=== PATIENT | female | born 1990 | race Caucasian/White ===

== ENCOUNTER 2020-11-16 11:14 | Emergency (ER) | payer OTHER ==
[~2020-11-16] VITALS: Ht 167.6 cm; Wt 81.3 kg
[2020-11-16 11:22] VITALS: BP 127/85
--- NOTE | 2020-11-16 11:52 | NUR ---
PT TO ROOM FROM TRIAGE. PT STATED THAT SHE IS 14 WEEKS . PT HAD SOME VB LAST WEEK AND US SHOWED SUB CHORIONIC HEMATOMA. LAST NIGHT, PT WAS EXPERIENCING SEVERE CRAMPING AND VAGINAL BLEEDING, SOAKING THROUGH 2 PADS WITH SOME CLOTS. PT'S OB TOLD HER TO COME TO THE ER FOR ANY WORSENING BLEEDING OR CRAMPING. PT STATED THAT HER BLEEDING HAS SLOWED DOWN AND CRAMPING IS LESS THAN LAST NIGHT.
[2020-11-16 11:58] LABS: BASOPHILS % (AUTO) 1 % (0-1); EOSINOPHILS % (AUTO) 1 % (1-7); LYMPHOCYTES % (AUTO) 22 % (22-44); MEAN CORPUSCULAR HEMOGLOBIN 33.2 pg (27.0-34.8); MEAN CORPUSCULAR HGB CONC 36.2 g/dL (32.4-35.8); MEAN PLATELET VOLUME 7.3 fL (7.4-10.4); MONOCYTES % (AUTO) 5 % (2-9); NEUTROPHILS % (AUTO) 72 % (42-75); PLATELET COUNT 219 x10^3/uL (130-400); RED BLOOD COUNT 3.59 x10^6/uL (3.82-5.3); RED CELL DISTRIBUTION WIDTH 13.4 % (9.6-15.2)
[2020-11-16 12:02] LABS: MD NO
--- NOTE | 2020-11-16 13:00 | NUR ---
PT RESTING COMFORTABLY IN BED.
--- NOTE | 2020-11-16 13:38 | NUR ---
Discharge instructions reviewed
== END 2020-11-16 13:47 | disposition home or self-care (01) ==
LOC: ED 13:15
DX: O20.0 Threatened abortion (principal); R10.2 Pelvic and perineal pain; Z3A.12 12 weeks gestation of pregnancy
CPT/HCPCS: 36415; 76801; 84702; 85025; 86901; 99284

== ENCOUNTER 2020-12-11 05:31 | Inpatient (IN) | payer OTHER ==
[~2020-12-11] VITALS: Ht 167.6 cm; Wt 83.0 kg
[2020-12-11] MEDS ORDERED: OXYTOCIN 30U/ 0.9% NaCL 500ML 500 ML ONE (05:39)
[2020-12-11] MEDS ORDERED: FENTANYL PF 100 MCG/2ML ONE (05:39)
[2020-12-11] MEDS: FENTANYL PF 100 MCG/2ML IVPush PRN ×3 (05:53→08:51)
[2020-12-11] MEDS ORDERED: RHOGAM FROM BLOOD BANK 1 NOTE EA IM/IV PRN (06:00)
[2020-12-11] MEDS ORDERED: MISOPROSTOL 200 MCG TABLET PO ONE (06:00)
[2020-12-11] MEDS ORDERED: FENTANYL PF 100 MCG/2ML IVPush PRN (06:00)
[2020-12-11 06:16] LABS: BASOPHILS % (AUTO) 0 % (0-1); EOSINOPHILS % (AUTO) 1 % (1-7); LYMPHOCYTES % (AUTO) 22 % (22-44); MD NO; MEAN CORPUSCULAR HGB CONC 35.5 g/dL (32.4-35.8); MEAN PLATELET VOLUME 7.5 fL (7.4-10.4); MONOCYTES % (AUTO) 5 % (2-9); NEUTROPHILS % (AUTO) 72 % (42-75); PLATELET COUNT 213 x10^3/uL (130-400); RED BLOOD COUNT 3.42 x10^6/uL (3.82-5.3); RED CELL DISTRIBUTION WIDTH 13.2 % (9.6-15.2)
[2020-12-11] MEDS ORDERED: ONDANSETRON 2MG/ML, 2ML ONE (07:24)
[2020-12-11] MEDS ORDERED: ONDANSETRON 2MG/ML, 2ML IVPush PRN (07:30)
[2020-12-11] MEDS ORDERED: LACTATED RINGERS 1,000 ML IV SCH (09:30)
[2020-12-11] MEDS ORDERED: NALOXONE 0.4 MG/ML, 1ML IVPush PRN (09:30)
[2020-12-11] MEDS ORDERED: FENTANYL/BUPIV./NS/PF 250 ML EPIDCONT SCH (09:30)
[2020-12-11] MEDS ORDERED: EPHEDRINE 50 MG/ML, 1ML IVPush PRN (09:30)
[2020-12-11] MEDS ORDERED: LACTATED RINGERS 1,000 ML IVBOLUS PRN (09:30)
[2020-12-11] MEDS ORDERED: BUPIVACAINE 0.25% ONE (09:31)
[2020-12-11] MEDS ORDERED: METHYLERGONOVINE 0.2 MG/ML IM STA (12:45)
[2020-12-11] MEDS ORDERED: METHYLERGONOVINE 0.2 MG/ML IM ONE (12:46)
[2020-12-11 12:58] LABS: BASOPHILS % (AUTO) 0 % (0-1); EOSINOPHILS % (AUTO) 0 % (1-7); LYMPHOCYTES % (AUTO) 5 % (22-44); MEAN CORPUSCULAR HEMOGLOBIN 32.7 pg (27.0-34.8); MEAN CORPUSCULAR HGB CONC 35.4 g/dL (32.4-35.8); MEAN PLATELET VOLUME 7.2 fL (7.4-10.4); MONOCYTES % (AUTO) 3 % (2-9); NEUTROPHILS % (AUTO) 92 % (42-75); PLATELET COUNT 214 x10^3/uL (130-400); RED CELL DISTRIBUTION WIDTH 13.3 % (9.6-15.2)
[2020-12-11 13:06] LABS: MD NO
[2020-12-11] MEDS ORDERED: IBUPROFEN 600 MG TABLET PO PRN (15:00)
[2020-12-11] MEDS ORDERED: DOCUSATE 100 MG CAPSULE PO PRN (15:00)
[2020-12-11] MEDS ORDERED: OXYTOCIN 30U/ 0.9% NaCL 500ML 500 ML IV SCH (15:00)
[2020-12-11] MEDS ORDERED: ACETAMINOPHEN 325 MG TABLET PO PRN (15:00)
[2020-12-11] MEDS ORDERED: ONDANSETRON 2MG/ML, 2ML IV PRN (15:00)
[2020-12-11] MEDS ORDERED: METOCLOPRAMIDE 5 MG/ML, 2ML IV PRN (15:00)
[2020-12-11] MEDS ORDERED: OXYcodone/APAP 5/325MG TABLET PO PRN (15:00)
== END 2020-12-11 16:15 | disposition home or self-care (01) | DRG 819 ==
LOC: LDIP 05:31
PROVIDERS: ADMIT Obstetrics & Gynecology; ATTEND Obstetrics & Gynecology
PROC: 10A07ZZ Abortion of Products of Conception, Via Natural or Artificial Opening (ICD-10-PCS; principal; 2020-12-11)
DX: O20.8 Other hemorrhage in early pregnancy (principal); F31.9 Bipolar disorder, unspecified; O40.2XX0 Polyhydramnios, second trimester, not applicable or unspecified; Z20.822 Contact with and (suspected) exposure to COVID-19; O99.342 Other mental disorders complicating pregnancy, second trimester; Z3A.15 15 weeks gestation of pregnancy; Z83.3 Family history of diabetes mellitus; Z97.5 Presence of (intrauterine) contraceptive device; Z91.041 Radiographic dye allergy status
CPT/HCPCS: 36415; 85025; 86850; 86900; 87635; G0378; J2405; J3010; J2210; J2590; J7120